=== PATIENT | male | born 1990 | race Caucasian/White ===

== ENCOUNTER 2020-03-24 15:35 | Emergency (ER) | payer OTHER ==
--- NOTE | 2020-03-24 15:58 | EDM.PDOC ---
ED HPI GENERAL MEDICAL PROBLEM - General Chief Complaint: Respiratory Problem Stated Complaint: COUGH/SHORTNESS BREATH Time Seen by Provider: 03/24/20 15:52 Source of Information: Reports: Patient History Limitations: Reports: No Limitations - History of Present Illness INITIAL COMMENTS - FREE TEXT/NARRATIVE: History of present illness: [Patient is 29-year-old male who presents with a wet cough for the last few days which has since developed into subjective body aches and chills over the last day or 2. States that he has no recent sick contacts or known COVID-19 exposure. Denies any chronic medical problems including asthma. Does not smoke. Been taking muuu-ekz-vqfluge cough and cold remedies to help with his symptoms. Denies vomiting and diarrhea.] Review of systems: As per history of present illness and below otherwise all systems reviewed and negative. Past medical history: As per history of present illness and as reviewed below otherwise noncontributory. Surgical history: As per history of present illness and as reviewed below otherwise noncontributory. Social history: No reported history of drug or alcohol abuse. Family history: As per history of present illness and as reviewed below otherwise noncontributory. Physical exam: General: Awake, alert, no acute distress, A&O X3. HEENT: Atraumatic, normocephalic, pupils reactive, negative for conjunctival pallor or scleral icterus, mucous membranes moist, throat clear, neck supple, nontender, trachea midline. Lungs: Clear to auscultation, breath sounds equal bilaterally, chest nontender. Heart: RRR, normal S1S2, no JVD. Abdomen: Soft, nondistended, nontender. Negative for masses or hepatosplenomegaly. Negative for costovertebral tenderness. Pelvis: Stable nontender. Genitourinary: Deferred. Rectal: Deferred. Extremities: Atraumatic, no edema, Neurovascular unremarkable. Neuro: Motor and sensory grossly intact throughout. Exam nonfocal. Diagnostics: [] Therapeutics: [] Impression: [] Plan: [] Definitive disposition and diagnosis as appropriate pending reevaluation and review of above. Generalized Pain Score (Numeric/FACES): 5 - Related Data Allergies Allergy/AdvReac Type Severity Reaction Status Date / Time codeine Allergy Hives Verified 03/24/20 15:48 Penicillins Allergy Hives Verified 03/24/20 15:48 Home Meds: Home Meds Phentermine HCl 1 dose PO DAILY 03/24/20 [History] Past Medical History HEENT History: Reports: None Cardiovascular History: Reports: None Respiratory History: Reports: None Gastrointestinal History: Reports: None Genitourinary History: Reports: None Musculoskeletal History: Reports: Other (See Below) Other Musculoskeletal History: Herniated disc L4,L5,S1 Neurological History: Reports: None Psychiatric History: Reports: None Endocrine/Metabolic History: Reports: None Hematologic History: Reports: None Immunologic History: Reports: None Oncologic (Cancer) History: Reports: None Dermatologic History: Reports: None - Infectious Disease History Infectious Disease History: Reports: None - Past Surgical History Head Surgeries/Procedures: Reports: None Social & Family History - Family History Family Medical History: Noncontributory - Tobacco Use Tobacco Use Status *Q: Never Tobacco User - Caffeine Use Caffeine Use: Reports: None - Recreational Drug Use Recreational Drug Use: No ED ROS GENERAL - Review of Systems Review Of Systems: Comprehensive ROS is negative, except as noted in HPI. ED EXAM, GENERAL - Physical Exam Exam: See Below (see h and p) Course - Vital Signs Text/Narrative:: Stable vital signs, negative Covid, negative chest x-ray, no respiratory distress, well-appearing overall. Encouraged him to continue with his symptomatic treatment at home with hiut-mzz-mkhlysw medicines and provided return precautions as well. Otherwise stable and well-appearing at discharge. Last Recorded V/S: Last Vital Signs Temp 36.0 C L 03/24/20 15:49 Pulse 68 03/24/20 17:30 Resp 16 03/24/20 17:30 BP 120/83 03/24/20 17:30 Pulse Ox 97 03/24/20 17:30 - Orders/Labs/Meds Orders: Active Orders 24 hr Category Date Time Status CORONAVIRUS COVID-19 PCR [facility] Stat Lab 03/24/20 16:55 Received Labs: Laboratory Tests 03/24/20 Range/Units 16:55 SARS CoV-2 RNA Rapid [facility] NEGATIVE (NEGATIVE) Departure - Departure Time of Disposition: 17:34 Disposition: Home, Self-Care 01 Condition: Good Clinical Impression: URI (upper respiratory infection), Flu-like symptoms - Discharge Information Instructions: Viral Respiratory Infection Referrals: Andrea Meza MD [Primary Care Provider] - Forms: ED Department Discharge Additional Instructions: Follow-up with primary care doctor. Return to the ER with any new or worsening symptoms. The following information is given to patients seen in the emergency department who are being discharged to home. This information is to outline your options fo r follow-up care. We provide all patients seen in our emergency department with a follow-up referral. The need for follow-up, as well as the timing and circumstances, are variable depending upon the specifics of your emergency department visit. If you don't have a primary care physician on staff, we will provide you with a referral. We always advise you to contact your personal physician following an emergency department visit to inform them of the circumstance of the visit and for follow-up with them and/or the need for any referrals to a consulting specialist. The emergency department will also refer you to a specialist when appropriate. This referral assures that you have the opportunity for follow-up care with a specialist. All of these measure are taken in an effort to provide you with optimal care, which includes your follow-up. Under all circumstances we always encourage you to contact your private physician who remains a resource for coordinating your care. When calling for follow-up care, please make the office aware that this follow-up is from your recent emergency room visit. If for any reason you are refused follow-up, please contact the [facility] Emergency Department at and asked to speak to the emergency department charge nurse. Sepsis Event Note (ED) - Evaluation Sepsis Screening Result: No Definite Risk - Focused Exam Vital Signs: Vital Signs Temp Pulse Resp BP Pulse Ox 03/24/20 17:30 68 16 120/83 97 03/24/20 15:49 36.0 C L 81 18 145/92 H 99 - My Orders Last 24 Hours: My Active Orders 03/24/20 16:55 CORONAVIRUS COVID-19 PCR [facility] Stat - Assessment/Plan Last 24 Hours: My Active Orders 03/24/20 16:55 CORONAVIRUS COVID-19 PCR [facility] Stat
--- NOTE | 2020-03-24 16:38 | CR ---
INDICATION: Cough TECHNIQUE: Chest 1 view COMPARISON: None FINDINGS: Cardiovascular and mediastinum: Heart size and vasculature are normal in caliber and appearance. Lungs and pleural spaces: Lungs are clear. No sign of infiltrate or mass. No sign of pleural effusion. No pneumothorax. Bones and soft tissues: No significant findings. IMPRESSION: No acute or significant findings. Dictated by Victor Manuel Bell MD @ Mar 24 2020 4:36PM Signed by Dr. Victor Manuel Bell @ Mar 24 2020 4:37PM
== END 2020-03-24 17:45 | disposition home or self-care (01) ==
LOC: MW.ED 15:35
DX: J06.9 Acute upper respiratory infection, unspecified (principal); Z20.828 Contact with and (suspected) exposure to other viral communicable diseases; Z88.0 Allergy status to penicillin; Z88.5 Allergy status to narcotic agent; Z79.899 Other long term (current) drug therapy
CPT/HCPCS: 71045; 71045-26; 99282; 99283-25; U0002

== ENCOUNTER 2021-01-29 07:17 | Emergency (ER) | payer BC, OTHER ==
--- NOTE | 2021-01-29 08:31 | EDM.PDOC ---
ED HPI GENERAL MEDICAL PROBLEM - General Chief Complaint: Respiratory Problem Stated Complaint: COVID SYMPTOMS Time Seen by Provider: 01/29/21 07:25 - History of Present Illness INITIAL COMMENTS - FREE TEXT/NARRATIVE: CHIEF COMPLAINT(S): Congestion HISTORY OF PRESENT ILLNESS: This is a 30-year-old man with out any significant past medical history who comes to the emergency department with a chief complaint of congestion. The patient states that for the last 4 days he has been experiencing stuffy nose and congestion. He states that 4 days ago he had a headache which was bifrontal not associated with any blurry vision, numbness, tingling, weakness, trouble walking, speaking or swallowing. He states that since that time his headache has resolved. He denies any loss of vision. He states that in addition his congestion in his sinuses is decreasing but now he has a sore throat and has a cough which is productive of yellowish sputum. He currently states that his throat pain is approximately 5 out of 10 which he de scribes as throbbing without any radiation, drooling, trismus, stridor. He denies any radiation of this pain. He states that he has not yet tried anything. There are no exacerbating relieving factors. He has not yet been vaccinated. He denies any loss of taste. He denies any other symptoms REVIEW OF SYSTEMS: Constitutional: Denies fever, chills. Eyes: Denies eye pain Ears, Nose, Mouth, & Throat: Positive for sinus congestion and sore throat Cardiovascular: Denies chest pain Respiratory: Positive for productive cough denies shortness of breath Gastrointestinal: Denies Nausea, vomiting, diarrhea, hematochezia. Genitourinary: Denies hematuria Skin:Denies a rash MSK: Denies joint pain Neurological: Denies blurred vision Psychiatric: Denies depression PAST MEDICAL HISTORY: As per history of present illness and as reviewed below otherwise noncontributory. SURGICAL HISTORY: As per history of present illness and as reviewed below otherwise noncontributory. SOCIAL HISTORY: As per history of present illness and as reviewed below otherwise noncontributory. FAMILY HISTORY: As per history of present illness and as reviewed below otherwise noncontributory. EXAMINATION OF ORGAN SYSTEMS/BODY AREAS: Constitutional: Blood pressure is 131/96, heart rate 90, respiratory rate 18 with an oxygen saturation 97% on room air. Temperature 36.2 General: Overall well-appearing man who is in no acute distress Psychiatric: Appropriate mood and affect. Eyes: No scleral icterus or conjunctival erythema ENMT: Moist mucous membranes. No pharyngeal erythema no stridor, no trismus, no drooling. No tonsillar exudates or swelling. Bilateral nasal turbinates with clear nasal drainage. Cardiovascular: Regular, rate, and rhythm. No gallops, murmurs, or rubs. Bilateral upper extremity pulses symmetric and intact. No peripheral edema. No JVD. Respiratory: Lungs clear to auscultation bilaterally. No wheezes, rales, or rhonchi. Gastrointestinal: Soft, non-tender, non-distended. Normoactive bowel sounds Genitourinary: No suprapubic tenderness Musculoskeletal: Normal range of motion. Skin: No lesions or abrasions. Neurological: Alert, GCS 15 MEDICAL DECISION MAKING AND COURSE IN THE ED WITH INTERPRETATION/REVIEW OF DIAGNOSTIC STUDIES: This is a 30-year-old man without any significant past medical history who comes to the emergency department with viral respiratory- like symptoms who has normal vital signs. At this time we will test the patient for Covid. I do not believe any further work-up is indicated. Laboratory: Covid is negative After lab I did discuss results with the patient. I discussed symptomatic treatment at home. He is to return for any new or worsening symptoms. He was amenable discharge and had no further questions DISPOSITION: The patient was discharged home in stable condition. The patient will follow up with primary care physician in 3 to 5 days CONDITION: Fair PROCEDURES: None FINAL IMPRESSION(S)/DIAGNOSES: 1. Acute viral upper respiratory infection Sameer Wu M.D. head Pain Score (Numeric/FACES): 5 - Related Data Allergies Allergy/AdvReac Type Severity Reaction Status Date / Time codeine Allergy Hives Verified 01/29/21 07:37 Penicillins Allergy Hives Verified 01/29/21 07:37 Home Meds: Home Meds Phentermine HCl 1 dose PO DAILY 03/24/20 [History] Gabapentin [Neurontin] 01/29/21 [History] Lisdexamfetamine [Vyvanse] 01/29/21 [History] Past Medical History HEENT History: Reports: None Cardiovascular History: Reports: None Respiratory History: Reports: None Gastrointestinal History: Reports: None Genitourinary History: Reports: None Musculoskeletal History: Reports: Other (See Below) Other Musculoskeletal History: Herniated disc L4,L5,S1 Neurological History: Reports: None Psychiatric History: Reports: None Endocrine/Metabolic History: Reports: None Hematologic History: Reports: None Immunologic History: Reports: None Oncologic (Cancer) History: Reports: None Dermatologic History: Reports: None - Infectious Disease History Infectious Disease History: Reports: None - Past Surgical History Head Surgeries/Procedures: Reports: None Social & Family History - Family History Family Medical History: No Pertinent Family History - Tobacco Use Tobacco Use Status *Q: Never Tobacco User Second Hand Smoke Exposure: No - Caffeine Use Caffeine Use: Reports: None - Recreational Drug Use Recreational Drug Use: No ED ROS GENERAL - Review of Systems Review Of Systems: See Below ED EXAM, GENERAL - Physical Exam Exam: See Below Course - Vital Signs Last Recorded V/S: Last Vital Signs Temp 36.2 C 01/29/21 07:32 Pulse 92 01/29/21 08:14 Resp 18 01/29/21 08:14 BP 107/61 01/29/21 08:14 Pulse Ox 97 01/29/21 08:14 - Orders/Labs/Meds Labs: Laboratory Tests 01/29/21 Range/Units 07:30 SARS-CoV-2 RNA (PINEDA) NEGATIVE (NEGATIVE) Departure - Departure Time of Disposition: 08:29 Disposition: Home, Self-Care 01 Condition: Fair Clinical Impression: Viral upper respiratory tract infection with cough - Discharge Information *PRESCRIPTION DRUG MONITORING PROGRAM REVIEWED*: No *COPY OF PRESCRIPTION DRUG MONITORING REPORT IN PATIENT DAVID: No Instructions: Upper Respiratory Infection, Adult, [id number] Referrals: Andrea Meza MD [Primary Care Provider] - Forms: ED Department Discharge Additional Instructions: You were evaluated today on an emergent basis. At this time your Covid test was negative. The test is not 100% accurate but is quite accurate. If you have continued symptoms, lose taste I would consider retesting however at this time I do recommend that you use Tylenol and Motrin for symptomatic relief. For your cough you can use goxy-xce-gkchyhm cough suppression syrup however I do recommend that she use honey with lemon water/tea. Is important to keep your hands clean and to cough/sneeze into your elbow. If you have any worsening symptoms such as worsening shortness of breath, cough with change in color of your phlegm, or chest pain I would like you to return to the emergency department. Otherwise follow-up with your primary care physician in 3 to 5 days. [facility] - [facility] [address] [place] [id number] [facility] [address] [place] [id number] The patient is informed of any results of their evaluation and diagnostic workup and all questions are answered. They are given discharge instructions and return precautions. The patient is stable for discharge. The patient states they understand and agree with the plan and that they will return if their symptoms get worse or if they have any new concerns. The following information is given to patients seen in the emergency department who are being discharged to home. This information is to outline your options for follow-up care. We provide all patients seen in our emergency department with a follow-up referral. The need for follow-up, as well as the timing and circumstances, are variable depending upon the specifics of your emergency department visit. If you don't have a primary care physician on staff, we will provide you with a referral. We always advise you to contact your personal physician following an emergency department visit to inform them of the circumstance of the visit and for follow-up with them and/or the need for any referrals to a consulting specialist. The emergency department will also refer you to a specialist when appropriate. This referral assures that you have the opportunity for follow-up care with a specialist. All of these measure are taken in an effort to provide you with optimal care, which includes your follow-up. Under all circumstances we always encourage you to contact your private physician who remains a resource for coordinating your care. When calling for follow-up care, please make the office aware that this follow-up is from your recent emergency room visit. If for any reason you are refused follow-up, please contact the [facility] Emergency Department at and asked to speak to the emergency department charge nurse. Sepsis Event Note (ED) - Evaluation Sepsis Screening Result: No Definite Risk - Focused Exam Vital Signs: Vital Signs Temp Pulse Resp BP Pulse Ox 01/29/21 08:14 92 18 107/61 97 01/29/21 07:32 36.2 C 90 18 131/96 H 97
== END 2021-01-29 08:55 | disposition home or self-care (01) ==
LOC: MW.ED 07:17
DX: J06.9 Acute upper respiratory infection, unspecified (principal); Z88.0 Allergy status to penicillin; Z88.5 Allergy status to narcotic agent; Z20.822 Contact with and (suspected) exposure to COVID-19
CPT/HCPCS: 99283; U0002

== ENCOUNTER 2021-05-28 06:50 | Emergency (ER) | payer BC ==
--- NOTE | 2021-05-28 07:12 | EDM.PDOC ---
ED HPI GENERAL MEDICAL PROBLEM - General Chief Complaint: Respiratory Problem Stated Complaint: PERSISTENT COUGH, BODY ACHES Time Seen by Provider: 05/28/21 07:00 - History of Present Illness INITIAL COMMENTS - FREE TEXT/NARRATIVE: History of present illness: [] Is a healthy 30-year-old male in the [employer]. He takes medicine for low back pain only. He has had prior back surgery in the low lumbar area with laminectomy. The patient complains that on the sixth of this month he began to have cough. He is developed increasing body aches diffusely including joints worse with movement over the last 4 days. He continues to have cough. He feels feverish. His low back pain is worse than ever. He has pain that vilchis in his buttocks but no loss of feeling in his legs saddle area no loss of bowel or bladder control had no loss of movement. 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 None of the family is vaccinated for flu or Covid. The patient has chronic back pain. His pain is significantly worse with movement since he started having this inflammatory response 4 days ago. This patient was seen and evaluated during the 2019 SARS-CoV-2 novel coronavirus pandemic period. Community viral transmission is ongoing at time of this encounter and the emergency department is operating under pandemic response procedures. Review of systems: As per history of present illness and below otherwise all systems reviewed and negative. Past medical history: As per history of present illness and as reviewed below otherwise noncontributory. Surgical history: As per history of present illness and as reviewed below otherwise noncontributory. Social history: No reported history of drug or alcohol abuse. Family history: As per history of present illness and as reviewed below otherwise noncontributory. Physical exam: Constitutional - well developed, well-nourished and in no acute distress HEENT - normocephalic, no evidence of trauma - external nose and mouth normal - no mass in neck and no JVD - mucosae moist EYES - full EOM, PERRL, no icterus - no evidence of inflammation, injection, or drainage Respiratory - no respiratory distress, equal bilateral expansion, lungs clear to auscultation and no abnormal lung sounds Cardiovascular - Regular Rhythm with S1 and S2 appreciated and no murmur, gallop or rub. GI - abdomen soft without distension or organomegaly - normal bowel sounds - no guard or rebound Musculoskeletal no gross deformity of long bones or joints - no tenderness, swelling or edema Neurologic - Alert and oriented times four - CN II-XII grossly intact - motor sensory and coordination symmetrically normal Psychiatric - appropriate mood and affect with normal thought content Hematologic - No petechiae or purpura - mucosa appropriate color and sclera not pale - normal nail bed color and refill Integument - no rash or evidence of trauma - normal turgor Diagnostics: [] Therapeutics: [] Impression: [] Plan: [] Definitive disposition and diagnosis as appropriate pending reevaluation and review of above. full body Pain Score (Numeric/FACES): 9 - Related Data Allergies Allergy/AdvReac Type Severity Reaction Status Date / Time codeine Allergy Hives Verified 05/28/21 06:54 Penicillins Allergy Hives Verified 05/28/21 06:54 Home Meds: Home Meds Phentermine HCl 1 dose PO DAILY 03/24/20 [History] Gabapentin [Neurontin] 300 mg PO DAILY 01/29/21 [History] Cyclobenzaprine [Flexeril] 10 mg PO TID PRN #15 tab 05/28/21 [Rx] methylPREDNISolone [Medrol Dose Pack] 4 mg PO DAILY #21 tab 05/28/21 [Rx] Past Medical History HEENT History: Reports: None Cardiovascular History: Reports: None Respiratory History: Reports: None Gastrointestinal History: Reports: None Genitourinary History: Reports: None Musculoskeletal History: Reports: Other (See Below) Other Musculoskeletal History: Herniated disc L4,L5,S1 Neurological History: Reports: None Psychiatric History: Reports: None Endocrine/Metabolic History: Reports: None Hematologic History: Reports: None Immunologic History: Reports: None Oncologic (Cancer) History: Reports: None Dermatologic History: Reports: None - Infectious Disease History Infectious Disease History: Reports: None - Past Surgical History Head Surgeries/Procedures: Reports: None Social & Family History - Family History Family Medical History: No Pertinent Family History - Caffeine Use Caffeine Use: Reports: Coffee, Energy Drinks - Recreational Drug Use Recreational Drug Use: No ED ROS GENERAL - Review of Systems Review Of Systems: Comprehensive ROS is negative, except as noted in HPI. ED EXAM, GENERAL - Physical Exam Exam: See Below Free Text/Narrative:: My physical exam is in the HPI Course - Vital Signs Last Recorded V/S: Last Vital Signs Temp 36.5 C 05/28/21 06:56 Pulse 97 05/28/21 07:48 Resp 16 05/28/21 07:48 BP 123/87 05/28/21 07:48 Pulse Ox 98 05/28/21 07:48 - Orders/Labs/Meds Labs: Laboratory Tests 05/28/21 Range/Units 07:02 Influenza Type A RNA NEGATIVE (NEGATIVE) Influenza Type B RNA NEGATIVE (NEGATIVE) SARS-CoV-2 RNA (PINEDA) POSITIVE H (NEGATIVE) Departure - Departure Time of Disposition: 08:10 Disposition: Home, Self-Care 01 Condition: Good Clinical Impression: Exacerbation of chronic back pain, COVID-19 virus infection - Discharge Information Instructions: COVID-19 Vaccine Information, COVID-19: What to Do If You Are Sick- [facility] (08/02/2020), COVID-19 Quarantine vs. Isolation - [facility] (02/12/2021), Chronic Back Pain Forms: ED Department Discharge Additional Instructions: You are a candidate for monoclonal antibodies if you so choose. The paperwork has been done. Your prescriptions for your muscle relaxer and anti-inflammatory for your back pain have [facility]. The health department will contact you about released from isolation and quarantine. [facility] - Primary Care [address] [place] [address] [place] [address] The following information is given to patients seen in the emergency department who are being discharged to home. This information is to outline your options for follow-up care. We provide all patients seen in our emergency department with a follow-up referral. The need for follow-up, as well as the timing and circumstances, are variable depending upon the specifics of your emergency department visit. If you don't have a primary care physician on staff, we will provide you with a referral. We always advise you to contact your personal physician following an emergency department visit to inform them of the circumstance of the visit and for follow-up with them and/or the need for any referrals to a consulting specialist. The emergency department will also refer you to a specialist when appropriate. This referral assures that you have the opportunity for follow-up care with a specialist. All of these measure are taken in an effort to provide you with optimal care, which includes your follow-up. Under all circumstances we always encourage you to contact your private physician who remains a resource for coordinating your care. When calling for follow-up care, please make the office aware that this follow-up is from your recent emergency room visit. If for any reason you are refused follow-up, please contact the [facility] Emergency Department at and asked to speak to the emergency department charge nurse. Sepsis Event Note (ED) - Evaluation Sepsis Screening Result: No Definite Risk - Focused Exam Vital Signs: Vital Signs Temp Pulse Resp BP Pulse Ox 05/28/21 07:48 97 16 123/87 98 05/28/21 06:56 36.5 C 101 H 16 137/78 97
[2021-05-28 07:49] LABS: CORONAVIRUS COVID-19 NAA POSITIVE (NEGATIVE); INFLUENZA A NAA NEGATIVE (NEGATIVE); INFLUENZA B NAA NEGATIVE (NEGATIVE)
== END 2021-05-28 08:25 | disposition home or self-care (01) ==
LOC: MW.ED 06:50
DX: U07.1 COVID-19 (principal); G89.29 Other chronic pain; M54.50 Low back pain, unspecified; Z88.5 Allergy status to narcotic agent; Z88.0 Allergy status to penicillin; Z79.899 Other long term (current) drug therapy
CPT/HCPCS: 0240U; 99283

== ENCOUNTER 2021-05-30 22:54 | Emergency (ER) | payer BC ==
[2021-05-30] MEDS ORDERED: Sodium Chloride 0.9% 2.5 ML Syringe FLUSH PRN (23:41)
[2021-05-30] MEDS ORDERED: Ketorolac 30 MG/ML SDV IVPUSH ONE (23:41)
[2021-05-30] MEDS ORDERED: Sodium Chloride 0.9% 10 ML Syringe FLUSH PRN (23:41)
[2021-05-30] MEDS ORDERED: Ondansetron 4 MG/2 ML SDV IVPUSH ONE (23:43)
[2021-05-31 00:13] LABS: BLOOD UREA NITROGEN,BUN 9 mg/dL (7.0-18.0); CARBON DIOXIDE,CO2 29.6 mmol/L (21.0-32.0); CHLORIDE,CL 100 mmol/L (98-107); GLUCOSE RANDOM 114 mg/dL (74-106); POTASSIUM,K 3.9 mmol/L (3.5-5.1); SODIUM,NA 137 mmol/L (136-148)
== END 2021-05-31 00:50 | disposition home or self-care (01) ==
LOC: MW.ED 22:54
DX: U07.1 COVID-19 (principal); Z88.5 Allergy status to narcotic agent; Z88.0 Allergy status to penicillin
CPT/HCPCS: 36415; 80048; 85025; 96374; 96375; 99284; J1885; J2405

== ENCOUNTER 2022-01-11 07:17 | Emergency (ER) | payer BC ==
[2022-01-11] MEDS ORDERED: traMADol 50 MG Tab PO ONE (07:49)
[2022-01-11] MEDS ORDERED: Cyclobenzaprine 10 MG Tab PO ONE (07:49)
[2022-01-11] MEDS ORDERED: Ketorolac 30 MG/ML SDV IM ONE (07:49)
== END 2022-01-11 08:40 | disposition home or self-care (01) ==
LOC: MW.ED 07:17
DX: M54.50 Low back pain, unspecified (principal); Z88.0 Allergy status to penicillin; Z88.5 Allergy status to narcotic agent
CPT/HCPCS: 96372; 99283; A9270; J1885; 99282

== ENCOUNTER 2024-02-29 23:31 | Emergency (ER) | payer BC ==
[2024-02-29] MEDS: Ketorolac 30 MG/ML SDV IM ONE (23:57)
[2024-02-29] MEDS: Acetaminophen 500 MG Tab PO ONE (23:57)
[2024-02-29] MEDS: Dexamethasone 4 MG Tab PO ONE (23:58)
[2024-02-29] MEDS: Cefdinir 300 MG Cap PO ONE (23:58)
== END 2024-03-01 01:02 | disposition home or self-care (01) ==
LOC: MW.ED 23:31
DX: H66.92 Otitis media, unspecified, left ear (principal); Z88.5 Allergy status to narcotic agent; Z88.0 Allergy status to penicillin; Z79.899 Other long term (current) drug therapy
CPT/HCPCS: 87651; 96372; 99283; A9270; J1885; J8540